=== PATIENT | male | born 1965 | race Two or more races ===

== ENCOUNTER 2016-12-04 16:56 | Emergency (ER) | payer MEDICAID ==
[~2016-12-04] VITALS: Ht 175.3 cm; Wt 90.7 kg
[2016-12-04] MEDS ORDERED: SODIUM CHLORIDE 0.9% 1,000 ML IVB ONE (17:25)
[2016-12-04] MEDS ORDERED: LORazepam 2MG/ML-1ML VIAL IV ONE (17:30)
[2016-12-04 18:38] VITALS: BP 131/92
== END 2016-12-04 20:51 | disposition home or self-care (01) ==
LOC: EDBD 16:56 → ER 17:02
DX: F10.129 Alcohol abuse with intoxication, unspecified (principal); F17.210 Nicotine dependence, cigarettes, uncomplicated
CPT/HCPCS: 36415; 80320; 94761; 96361; 96374; 99285; J2060; J7030

== ENCOUNTER 2016-12-05 07:51 | Emergency (ER) | payer MEDICAID ==
[~2016-12-05] VITALS: Ht 172.7 cm; Wt 90.7 kg
[2016-12-05] MEDS ORDERED: ONDANSETRON HCL 4 MG/2 ML VIAL ONE (08:08)
[2016-12-05] MEDS ORDERED: ONDANSETRON HCL 4 MG/2 ML VIAL IV ONE (08:15)
[2016-12-05] MEDS ORDERED: SODIUM CHLORIDE 0.9% 1,000 ML IV ONE (08:30)
[2016-12-05] MEDS ORDERED: LORazepam 2MG/ML-1ML VIAL ONE (09:10)
[2016-12-05 09:18] VITALS: BP 159/84
[2016-12-05] MEDS ORDERED: LORazepam 2MG/ML-1ML VIAL IV ONE (09:30)
== END 2016-12-05 10:08 | disposition home or self-care (01) ==
LOC: EDBD 07:51 → ER 08:14
DX: E86.0 Dehydration (principal); F10.239 Alcohol dependence with withdrawal, unspecified; F17.210 Nicotine dependence, cigarettes, uncomplicated
CPT/HCPCS: 96361; 96374; 96375; 99284; J2060; J2405